=== PATIENT | female | born 1970 | race Caucasian/White ===

== ENCOUNTER 2018-11-26 12:29 | Emergency (ER) | payer OTHER ==
[~2018-11-26] VITALS: Ht 157.5 cm; Wt 63.3 kg
[2018-11-26 12:30] VITALS: BP 115/77
--- NOTE | 2018-11-26 12:59 | PHYS DOC ---
Past History Past Medical History: Hypothyroid Additional Past Surgical Histo: pelvic mesh Smoking: Non-smoker Alcohol Use: Heavy (3 beers 3-4 times a week) Drug Use: None Adult General Chief Complaint Chief Complaint: OTHER COMPLAINTS HPI HPI Patient is a 48-year-old female presents with left arm paresthesia. This started several hours ago. It is circumferential from the mid upper arm distally. Feels like it is tingling. No trauma. No increased use. Patient is right-hand dominant. No weakness. 2 days ago patient had an episode where she was seen bright lights in front of her eyes this lasted for about 2 hours during which she could not remember people's names. This resolved entirely. During this time she also had similar tingling sensation in her left arm. She also had this transiently yesterday as well. She noted a bruise after rubbing her arm, in her ring finger. She denies any headache. Denies any previous history of similar. Denies any recent changes in medicines. Denies any nausea or vomiting. Denies any chest pain.[] Review of Systems Review of Systems Constitutional: Denies fever or chills [] Eyes: Denies change in visual acuity, redness, or eye pain [] HENT: Denies nasal congestion or sore throat [] Respiratory: Denies cough or shortness of breath [] Cardiovascular: No chest pain or palpitations[] GI: Denies abdominal pain, nausea, vomiting, bloody stools or diarrhea [] : Denies dysuria or hematuria [] Musculoskeletal: Denies back pain or joint pain [] Integument: Denies rash or skin lesions [] Neurologic: Denies headache, focal weakness, see history of present illness[] Endocrine: Denies polyuria or polydipsia [] All other systems were reviewed and found to be within normal limits, except as documented in this note. Allergies Allergies Allergies Coded Allergies Type Severity Reaction Last Updated Verified No Known Drug Allergies 11/26/18 No Physical Exam Physical Exam Constitutional: Well developed, well nourished, no acute distress, non-toxic appearance. [] HENT: Normocephalic, atraumatic, bilateral external ears normal, oropharynx moist, no oral exudates, nose normal. [] Eyes: PERRLA, EOMI, conjunctiva normal, no discharge. [] Neck: Normal range of motion, no tenderness, supple, no stridor. No bruit. [] Cardiovascular:Heart rate regular rhythm, no murmur [] Lungs & Thorax: Bilateral breath sounds clear to auscultation [] Abdomen: Bowel sounds normal, soft, no tenderness, no masses, no pulsatile masses. [] Skin: Warm, dry, no erythema, no rash. [] Back: No tenderness, no CVA tenderness. [] Extremities: No tenderness, no cyanosis, no clubbing, ROM intact, no edema. Strength is 5 out of 5. [] Neurologic: Alert and oriented X 3, normal motor function, normal sensory function, no focal deficits noted. NIH stroke scale of 0, normal rapid repetitive and alternating movements bilaterally upper extremities. No sensory changes to our objective testing bilateral upper extremities. [] Psychologic: Affect normal, judgement normal, mood normal. [] EKG EKG EKG shows a sinus rhythm at 68 bpm, normal axis, normal QTC, no ST elevation. No previous available for comparison. Interpreted by me at 1305.[] Radiology/Procedures Radiology/Procedures PROCEDURE: PORTABLE CHEST 1V PA chest radiograph 11/26/2018 CLINICAL HISTORY: Left-sided numbness. A PA digital radiograph of the chest was obtained. No previous studies are available for comparison. The cardiac and mediastinal silhouettes are within normal limits in size and configuration. No acute pulmonary infiltrate is seen. No pleural effusion or pneumothorax is noted. Minimal S-shaped curvature of the thoracolumbar spine is seen. IMPRESSION: No acute abnormality is seen. PROCEDURE: CT HEAD WO CONTRAST CT scan of the head without contrast 11/26/2018 Clinical History: Left arm paresthesias. Memory changes. Technique: Unenhanced, contiguous, 5 mm axial sections were obtained through the head. One or more of the following individualized dose reduction techniques were utilized for this study: 1. Automated exposure control. 2. Adjustment of the mA and/or kV according to patient size. 3. Use of iterative reconstruction technique. Findings: No previous studies are available for comparison. There is mild generalized parenchymal atrophy. No acute parenchymal abnormality is seen. No extra-axial fluid collection is noted. No skull fracture is seen. Mild to moderate mucosal thickening is seen involving the right maxillary sinus. Impression: No acute intracranial abnormality is seen. [] Course & Med Decision Making Course & Med Decision Making Pertinent Labs and Imaging studies reviewed. (See chart for details) ED course: Patient arrived, was placed in bed, and tolerated exam well. She was transported to and from [place] with any complications. After the return of the laboratory and imaging findings, these were discussed with the patient and her family who voiced understanding. All questions were answered. Patient was discharged in improved condition. Medical decision making: There is no evidence of an acute stroke syndrome. No evidence of a significant electrolyte abnormality. No evidence of a mass or bleed. Will have patient start aspirin therapy as a preventative measure given that these paresthesias. Discussed with patient need for possible MRI versus imaging of the cervical spine given this paresthesias of her left upper extremity. No MRI is available at [facility], and do not believe that it is necessary is any emergent procedure given that the symptoms have been present for the past several days.[] Dragon Disclaimer Dragon Disclaimer This electronic medical record was generated, in whole or in part, using a voice recognition dictation system. Departure Departure: Impression: Primary Impression: Paresthesia of left upper extremity Disposition: 01 HOME, SELF-CARE Condition: IMPROVED Referrals: YAMEL MCDOWELL DO (PCP) Follow-up in 2 days Patient Instructions: Paresthesia Additional Instructions: Follow-up with your regular doctor in 2 days. Return to the ER if worsening numbness, weakness, visual changes, or any other concerns. Scripts Aspirin (ASPIRIN) 81 Mg Tab.chew 81 MG PO DAILY for paresthesia, #30 TAB Prov: SHERI JESSICA DO 11/26/18 SHERI JESSICA DO November 26, 2018 12:59
--- NOTE | 2018-11-26 13:03 | EKG ---
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
[2018-11-26 13:31] LABS: BASO # 0.1 x10^3/uL (0.0-0.2); BASO % 1 % (0-3); EOS # 0.1 x10^3/uL (0.0-0.7); EOS % 1 % (0-3); HEMATOCRIT 37.5 % (36.0-47.0); HEMOGLOBIN 12.2 g/dL (12.0-15.5); LYMPH # 1.2 x10^3/uL (1.0-4.8); LYMPH % 24 % (24-48); MEAN CORPUSCULAR HEMOGLOBIN 27 pg (25-35); MEAN CORPUSCULAR HGB CONC 33 g/dL (31-37); MEAN CORPUSCULAR VOLUME 84 fL (79-100); MONO # 0.5 x10^3/uL (0.0-1.1); MONO % 10 % (0-9); NEUT # 3.1 x10^3uL (1.8-7.7); NEUT % 64 % (31-73); PLATELET COUNT 296 x10^3/uL (140-400); RED BLOOD COUNT 4.47 x10^6/uL (3.50-5.40); WHITE BLOOD COUNT 4.9 x10^3/uL (4.0-11.0)
[2018-11-26 13:41] LABS: AMPHETAMINE/METHAMPHETAMINE NEG (NEG); BARBITURATES NEG (NEG); BENZODIAZEPINES NEG (NEG); CANNABINOIDS NEG (NEG); COCAINE NEG (NEG); METHADONE NEG (NEG); OPIATES NEG (NEG); PHENCYCLIDINE NEG (NEG)
[2018-11-26 13:42] LABS: U PREG PATIENT NEGATIVE (NEG)
[2018-11-26 13:43] LABS: BILIRUBIN,URINE NEG (NEG); CLARITY,URINE CLEAR; COLOR,URINE STRAW; GLUCOSE,URINE NEG (NEG)
[2018-11-26 13:44] LABS: NITRITE,URINE NEG (NEG); UROBILINOGEN,URINE 0.2 mg/dL (0.2 mg/dL)
[2018-11-26 13:45] LABS: ALBUMIN 3.8 g/dL (3.4-5.0); ALBUMIN/GLOBULIN RATIO 1.1 (1.0-1.7); CALCIUM 9.4 mg/dL (8.5-10.1); CREATININE 0.7 mg/dL (0.6-1.0); GFR 88.6; MAGNESIUM 2.2 mg/dL (1.8-2.4); POTASSIUM 4.1 mmol/L (3.5-5.1); TOTAL BILIRUBIN 0.4 mg/dL (0.2-1.0); TOTAL PROTEIN 7.4 g/dL (6.4-8.2)
--- NOTE | 2018-11-26 13:49 | RAD ---
PA chest radiograph 11/26/2018 CLINICAL HISTORY: Left-sided numbness. A PA digital radiograph of the chest was obtained. No previous studies are available for comparison. The cardiac and mediastinal silhouettes are within normal limits in size and configuration. No acute pulmonary infiltrate is seen. No pleural effusion or pneumothorax is noted. Minimal S-shaped curvature of the thoracolumbar spine is seen. IMPRESSION: No acute abnormality is seen. Electronically signed by: Kwabena Ardon MD (11/26/2018 1:46 PM) [facility]
[2018-11-26 13:51] LABS: BACTERIA,URINE 0 /HPF (0-FEW); RBC,URINE RARE /HPF (0-2); SQUAMOUS EPITHELIAL CELL,UR OCC /LPF; WBC,URINE RARE /HPF (0-4)
--- NOTE | 2018-11-26 14:03 | RAD ---
CT scan of the head without contrast 11/26/2018 Clinical History: Left arm paresthesias. Memory changes. Technique: Unenhanced, contiguous, 5 mm axial sections were obtained through the head. One or more of the following individualized dose reduction techniques were utilized for this study: 1. Automated exposure control. 2. Adjustment of the mA and/or kV according to patient size. 3. Use of iterative reconstruction technique. Findings: No previous studies are available for comparison. There is mild generalized parenchymal atrophy. No acute parenchymal abnormality is seen. No extra-axial fluid collection is noted. No skull fracture is seen. Mild to moderate mucosal thickening is seen involving the right maxillary sinus. Impression: No acute intracranial abnormality is seen. Electronically signed by: Kwabena Ardon MD (11/26/2018 2:00 PM) [facility]
[2018-11-26] MEDS ORDERED: ASPI-630 PO (14:29)
== END 2018-11-26 14:30 | disposition home or self-care (01) ==
LOC: ER 12:29
DX: R20.2 Paresthesia of skin (principal); E03.9 Hypothyroidism, unspecified; F10.20 Alcohol dependence, uncomplicated; Y90.0 Blood alcohol level of less than 20 mg/100 ml
CPT/HCPCS: 36415; 70450; 71045; 80053; 80307; 81001; 81025; 83735; 84484; 85025; 85610; 93005; 99285-25

== ENCOUNTER 2019-02-17 17:29 | Inpatient (IN) | payer OTHER ==
[~2019-02-17] VITALS: Ht 157.5 cm; Wt 63.1 kg
[~2019-02-17 17:29] MED LIST: ASPI-630 PO
--- NOTE | 2019-02-17 17:51 | EKG ---
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
--- NOTE | 2019-02-17 17:53 | ED.ADGEN ---
Past History Past Medical History: Hypothyroid, TIA Past Surgical History: Other Additional Past Surgical Histo: pelvic mesh Smoking: Non-smoker Alcohol Use: Heavy Drug Use: None Adult General Chief Complaint Chief Complaint ".. I started having symptoms .. like I had on November 25.. they thought maybe I had a mini stroke... I started seeing stars... in both eyes... , I am back to normal now... I have not been taking my ASA daily the past couple weeks.. Last time I also had some confusion.. like I could not remember my nephews name... but they did a follow up MRI and everything was fine..."..." My thryroid meds was 10 x too much last time... and they thought that was the cause...".. " I do get migraine too..." HPI HPI Patient is a 48 year old female dependent who presents with above hx and complaints seen stars in both eyes. Onset occurred approximately an hour ago. Symptoms have resolved by the time of arrival to the emergency department. No history of trauma. No specific ill contacts. 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 Pt. last TIA or CVA likes symptoms were felt do over dosage of thyroid medications. Reportedly MRI at that time was negative. Patient reportedly to be on aspirin daily but has not taken it for the last 2 weeks. She does have neuro history of occasional migraines. Pt. had migraine symptoms 2 days ago and again today. Patient normally follows at [place] for care. Review of Systems Review of Systems Constitutional: Denies fever or chills [] Eyes: Denies change in visual acuity, redness, or eye pain []complains of seeing stars in both eyes - colors HENT: Denies nasal congestion or sore throat [] Respiratory: Denies cough or shortness of breath [] Cardiovascular: No additional information not addressed in HPI [] GI: Denies abdominal pain, nausea, vomiting, bloody stools or diarrhea [] : Denies dysuria or hematuria [] Musculoskeletal: Denies back pain or joint pain [] Integument: Denies rash or skin lesions [] Neurologic: Denies headache, focal weakness or sensory changes [] Endocrine: Denies polyuria or polydipsia [] All other systems were reviewed and found to be within normal limits, except as documented in this note. Family History Family History Noncontributory Current Medications Current Medications Current Medications Medications (Trade) Dose Ordered Sig/Bernardo Start Time Stop Time Status Last Admin Dose Admin Aspirin (Children'S Aspirin) 324 mg 1X ONCE 02/17/19 18:00 02/17/19 18:01 DC 02/17/19 18:11 324 MG Multivitamins/ Minerals 10 ml/ Folic Acid 1 mg/ Thiamine HCl 100 mg/Lactated Ringer's 1,011.2 ml @ 1,011.2 mls/hr 1X ONCE 02/17/19 18:00 02/17/19 18:59 DC 02/17/19 18:11 1,011.2 MLS/HR Allergies Allergies Allergies Coded Allergies Type Severity Reaction Last Updated Verified No Known Drug Allergies 11/26/18 No Physical Exam Physical Exam Constitutional: Well developed, well nourished, in acute emotional distress, non-toxic appearance. [] HENT: Normocephalic, atraumatic, bilateral external ears normal, oropharynx moist, no oral exudates, nose normal. [] Eyes: PERRLA, EOMI, conjunctiva normal, no discharge. [] Myopia Neck: Normal range of motion, no tenderness, supple, no stridor. [] Cardiovascular:Heart rate regular rhythm, no murmur [] Lungs & Thorax: Bilateral breath sounds equal at apex auscultation [] Abdomen: Bowel sounds normal, soft, no tenderness, no masses, no pulsatile masses. [] Skin: Warm, dry, no erythema, no rash. [] Back: No tenderness, no CVA tenderness. [] Extremities: No tenderness, no cyanosis, no clubbing, ROM intact, no edema. [] Neurologic: Alert and oriented X 3, normal motor function, normal sensory function, no focal deficits noted. []DTRs +2 patella and brachial. No drift. Teasel Gig Operator equal. Baseline NIHSS =0. at bedside states she appears to be normal mental status to him. Psychologic: Affect anxious, judgement normal, mood normal. [] Current Patient Data Vital Signs Vital Signs Date Time Temp Pulse Resp B/P (MAP) Pulse Ox O2 Delivery O2 Flow Rate FiO2 02/17/19 17:36 98.2 78 16 100 Room Air Lab Results Laboratory Tests Test 02/17/19 17:41 02/17/19 18:09 White Blood Count 5.4 x10^3/uL (4.0-11.0) Red Blood Count 4.28 x10^6/uL (3.50-5.40) Hemoglobin 11.7 g/dL (12.0-15.5) L Hematocrit 36.6 % (36.0-47.0) Mean Corpuscular Volume 86 fL (79-100) Mean Corpuscular Hemoglobin 28 pg (25-35) Mean Corpuscular Hemoglobin Concent 32 g/dL (31-37) Red Cell Distribution Width 15.1 % (11.5-14.5) H Platelet Count 281 x10^3/uL (140-400) Neutrophils (%) (Auto) 60 % (31-73) Lymphocytes (%) (Auto) 27 % (24-48) Monocytes (%) (Auto) 9 % (0-9) Eosinophils (%) (Auto) 3 % (0-3) Basophils (%) (Auto) 1 % (0-3) Neutrophils # (Auto) 3.2 x10^3uL (1.8-7.7) Lymphocytes # (Auto) 1.5 x10^3/uL (1.0-4.8) Monocytes # (Auto) 0.5 x10^3/uL (0.0-1.1) Eosinophils # (Auto) 0.2 x10^3/uL (0.0-0.7) Basophils # (Auto) 0.1 x10^3/uL (0.0-0.2) Erythrocyte Sedimentation Rate 10 (0-25) Prothrombin Time 9.9 SEC (9.4-11.4) Prothrombin Time INR 1.0 (0.9-1.1) PTT 26 SEC (23-33) Sodium Level 138 mmol/L (136-145) Potassium Level 3.3 mmol/L (3.5-5.1) L Chloride Level 102 mmol/L (98-107) Carbon Dioxide Level 22 mmol/L (21-32) Anion Gap 14 (6-14) Blood Urea Nitrogen 16 mg/dL (7-20) Creatinine 0.9 mg/dL (0.6-1.0) Estimated GFR (Cockcroft-Gault) 66.3 Glucose Level 110 mg/dL (70-99) H Calcium Level 8.9 mg/dL (8.5-10.1) Magnesium Level 2.0 mg/dL (1.8-2.4) Creatine Kinase 140 U/L (26-192) Troponin I Quantitative < 0.017 ng/mL (0-0.055) OH-Cuz-B-Type Natriuretic Peptide 130 pg/mL (0-124) H Ethyl Alcohol Level < 10 mg/dL (0-10) Urine Collection Type Unknown Urine Color Straw Urine Clarity Clear Urine pH 5.5 Urine Specific [place] <=1.005 Urine Protein Neg (NEG-TRACE) Urine Glucose (UA) Neg mg/dL (NEG) Urine Ketones (Stick) Neg mg/dL (NEG) Urine Blood Neg (NEG) Urine Nitrite Neg (NEG) Urine Bilirubin Neg (NEG) Urine Urobilinogen Dipstick 0.2 mg/dL (0.2 mg/dL) Urine Leukocyte Esterase Neg (NEG) Urine RBC 0 /HPF (0-2) Urine WBC 0 /HPF (0-4) Urine Squamous Epithelial Cells Occ /LPF Urine Bacteria 0 /HPF (0-FEW) Urine Opiates Screen Neg (NEG) Urine Methadone Screen Neg (NEG) Urine Barbiturates Neg (NEG) Urine Phencyclidine Screen Neg (NEG) Urine Amphetamine/Methamphetamine Neg (NEG) Urine Benzodiazepines Screen Neg (NEG) Urine Cocaine Screen Neg (NEG) Urine Cannabinoids Screen Neg (NEG) Urine Ethyl Alcohol Neg (NEG) EKG EKG I interpretation of EKG shows a sinus rhythm at 69 bpm. No acute morphology[] Radiology/Procedures Radiology/[place] [address] IMAGING REPORT Signed PATIENT: TREVER MOHAN ACCOUNT: [id number] : 1970 LOCATION: [address] [place] [address] AGE: 48 SEX: F EXAM STATUS: ADM IN ORD. PHYSICIAN: JHONY ROTHMAN MD REASON: TIA symptoms PROCEDURE: DOPPLER CAROTID BILAT Exam: Ultrasound carotid duplex Indication: TIA symptoms Technique: Real-time grayscale and color Doppler images of the bilateral carotid arteries were obtained by the department pattern stamper. Spectral Doppler was used. Comparisons: None FINDINGS: Peak systolic velocity as follows: Right: Common carotid artery: 87 cm/s Internal carotid artery: 51 cm/s External carotid artery: 47 cm/s Left: Common carotid artery: 78 cm/s Internal carotid artery: 68 cm/s External carotid artery: 40 cm/s Anterior grade flow within the vertebral arteries are noted bilaterally. IMPRESSION: No significant stenosis within the cervical carotid vasculature Electronically signed by: Arron Miller MD (02/17/2019 7:55 PM) [facility] DICTATED AND SIGNED BY: ARRON MILLER MD DATE: 02/17/191954 CC: YAMEL MCDOWELL DO; JHONY ROTHMAN MD; JEROME HERNANDEZ MD ~ [address] [address] [place] [address] IMAGING REPORT Signed PATIENT: TREVER MOHAN ACCOUNT: [id number] : 1970 LOCATION: ER AGE: 48 SEX: F EXAM STATUS: REG ER ORD. PHYSICIAN: JHONY ROTHMAN MD REASON: TIA symptoms PROCEDURE: CHEST PA & LATERAL Exam: Chest 2 views INDICATION: TIA symptoms TECHNIQUE: Frontal and lateral views of the chest Comparisons: 11/26/2018 FINDINGS: The cardiomediastinal silhouette and pulmonary vessels are within normal limits. The lung and pleural spaces are clear. IMPRESSION: No acute cardiopulmonary process. Electronically signed by: Arron Miller MD (02/17/2019 6:01 PM) [facility] DICTATED AND SIGNED BY: ARRON MILLER MD DATE: 02/17/191800 Signed PATIENT: TREVER MOHAN ACCOUNT: [id number] : 1970 LOCATION: ER AGE: 48 SEX: F EXAM STATUS: REG ER ORD. PHYSICIAN: JHONY ROTHMAN MD REASON: TIA symptoms PROCEDURE: CHEST PA & LATERAL Exam: Chest 2 views INDICATION: TIA symptoms TECHNIQUE: Frontal and lateral views of the chest Comparisons: 11/26/2018 FINDINGS: The cardiomediastinal silhouette and pulmonary vessels are within normal limits. The lung and pleural spaces are clear. IMPRESSION: No acute cardiopulmonary process. Electronically signed by: Arron Miller MD (02/17/2019 6:01 PM) [facility] DICTATED AND SIGNED BY: ARRON MILLER MD DATE: 02/17/19 180 CC: YAMEL MCDOWELL DO; JHONY ROTHMAN MD ~ [][place] [address] IMAGING REPORT Signed PATIENT: TREVER MOHAN ACCOUNT: [id number] : 1970 LOCATION: ER AGE: 48 SEX: F EXAM STATUS: REG ER ORD. PHYSICIAN: JHONY ROTHMAN MD REASON: Stroke protocol- TIA 3 mo ago, repeat symptoms at 1700 today PROCEDURE: CT CODE STROKE HEAD WO Exam: CT head INDICATION: Stroke TECHNIQUE: Sequential axial images through the head were obtained without the administration of IV contrast. Comparisons: 11/26/2018 FINDINGS: No focal parenchymal lesion or hemorrhage is identified. There is no midline shift or sulcal effacement. No acute vascular territory infarction is identified. Hill-white distinction is preserved. The ventricular system is within normal limits without compression hydrocephalus. The basal cisterns are well maintained. The visualized portions of the paranasal sinuses and mastoid air cells are well-pneumatized. No acute fractures. IMPRESSION: No acute intracranial abnormality. Exposure: One or more of the following in the visualized dose reduction techniques were utilized for this examination: 1. Automated exposure control 2. Adjustment of the MA and/or KV according to patient size Use of iterative of reconstructive technique Electronically signed by: Arron Miller MD (02/17/2019 5:55 PM) [facility] DICTATED AND SIGNED BY: ARRON MILLER MD DATE: 02/17/19 9233 CC: YAMEL MCDOWELL DO; JHONY ROTHMAN MD ~ Course & Med Decision Making Course & Med Decision Making Pertinent Labs and Imaging studies reviewed. (See chart for details) Pt. admitted to Dr. Hernandez with a Neuro consult. [] Final Impression Final Impression 1. TIA "symptom bilateral - stars"- vs Migraine Variant 2. Myopia 3. Hypokalemia 3.3 4. Hx. Hypothyroid 5. Hx Migraines Dragon Disclaimer Dragon Disclaimer This electronic medical record was generated, in whole or in part, using a voice recognition dictation system. Discharge Summary Visit Information Final Diagnosis Problems Medical Problems: (1) TIA (transient ischemic attack) Status: Acute Brief Hospital Course Allergies Allergies Coded Allergies Type Severity Reaction Last Updated Verified No Known Drug Allergies 11/26/18 No Vital Signs Vital Signs Date Time Temp Pulse Resp B/P (MAP) Pulse Ox O2 Delivery O2 Flow Rate FiO2 02/17/19 17:36 98.2 78 16 100 Room Air Lab Results Laboratory Tests Test 02/17/19 17:41 02/17/19 18:09 White Blood Count 5.4 x10^3/uL (4.0-11.0) Red Blood Count 4.28 x10^6/uL (3.50-5.40) Hemoglobin 11.7 g/dL (12.0-15.5) Hematocrit 36.6 % (36.0-47.0) Mean Corpuscular Volume 86 fL (79-100) Mean Corpuscular Hemoglobin 28 pg (25-35) Mean Corpuscular Hemoglobin Concent 32 g/dL (31-37) Red Cell Distribution Width 15.1 % (11.5-14.5) Platelet Count 281 x10^3/uL (140-400) Neutrophils (%) (Auto) 60 % (31-73) Lymphocytes (%) (Auto) 27 % (24-48) Monocytes (%) (Auto) 9 % (0-9) Eosinophils (%) (Auto) 3 % (0-3) Basophils (%) (Auto) 1 % (0-3) Neutrophils # (Auto) 3.2 x10^3uL (1.8-7.7) Lymphocytes # (Auto) 1.5 x10^3/uL (1.0-4.8) Monocytes # (Auto) 0.5 x10^3/uL (0.0-1.1) Eosinophils # (Auto) 0.2 x10^3/uL (0.0-0.7) Basophils # (Auto) 0.1 x10^3/uL (0.0-0.2) Erythrocyte Sedimentation Rate 10 (0-25) Prothrombin Time 9.9 SEC (9.4-11.4) Prothromb Time International Ratio 1.0 (0.9-1.1) Activated Partial Thromboplast Time 26 SEC (23-33) Sodium Level 138 mmol/L (136-145) Potassium Level 3.3 mmol/L (3.5-5.1) Chloride Level 102 mmol/L (98-107) Carbon Dioxide Level 22 mmol/L (21-32) Anion Gap 14 (6-14) Blood Urea Nitrogen 16 mg/dL (7-20) Creatinine 0.9 mg/dL (0.6-1.0) Estimated GFR (Cockcroft-Gault) 66.3 Glucose Level 110 mg/dL (70-99) Calcium Level 8.9 mg/dL (8.5-10.1) Magnesium Level 2.0 mg/dL (1.8-2.4) Creatine Kinase 140 U/L (26-192) Troponin I Quantitative < 0.017 ng/mL (0-0.055) KO-Haf-W-Type Natriuretic Peptide 130 pg/mL (0-124) Ethyl Alcohol Level < 10 mg/dL (0-10) Urine Collection Type Unknown Urine Color Straw Urine Clarity Clear Urine pH 5.5 Urine Specific [place] <=1.005 Urine Protein Neg (NEG-TRACE) Urine Glucose (UA) Neg mg/dL (NEG) Urine Ketones (Stick) Neg mg/dL (NEG) Urine Blood Neg (NEG) Urine Nitrite Neg (NEG) Urine Bilirubin Neg (NEG) Urine Urobilinogen Dipstick 0.2 mg/dL (0.2 mg/dL) Urine Leukocyte Esterase Neg (NEG) Urine RBC 0 /HPF (0-2) Urine WBC 0 /HPF (0-4) Urine Squamous Epithelial Cells Occ /LPF Urine Bacteria 0 /HPF (0-FEW) Urine Opiates Screen Neg (NEG) Urine Methadone Screen Neg (NEG) Urine Barbiturates Neg (NEG) Urine Phencyclidine Screen Neg (NEG) Urine Amphetamine/Methamphetamine Neg (NEG) Urine Benzodiazepines Screen Neg (NEG) Urine Cocaine Screen Neg (NEG) Urine Cannabinoids Screen Neg (NEG) Urine Ethyl Alcohol Neg (NEG) Brief Hospital Course Ms. Mohan is a 48 old female dependent who presented with TIA vs CVA vs Migraine variant symptoms. Admitted to Dr. Hernandez with neuro consult. Discharge Information Condition at Discharge: Improved, Stable Dischare Medications Current Medications Multivitamins/ Minerals 10 ml/ Folic Acid 1 mg/ Thiamine HCl 100 mg/Lactated Ringer's 1,011.2 ml @ 1,011.2 mls/hr 1X ONCE IV Last administered on 02/17/19at 18:11; Admin Dose 1,011.2 MLS/HR; Start 02/17/19 at 18:00; Stop 02/17/19 at 18:59; Status DC Aspirin (Children'S Aspirin) 324 mg 1X ONCE PO Last administered on 02/17/19at 18:11; Admin Dose 324 MG; Start 02/17/19 at 18:00; Stop 02/17/19 at 18:01; Status DC Active Scripts Active Reported Synthroid (Levothyroxine Sodium) 137 Mcg Tablet 137 Mcg PO DAILY06 Dragon Disclaimer This chart was dictated in whole or in part using Voice Recognition software in a busy, high-work load, and often noisy Emergency Department environment. It may contain unintended and wholly unrecognized errors or omissions. JHONY ROTHMAN MD Feb 17, 2019 17:53
[2019-02-17 17:57] LABS: BASO # 0.1 x10^3/uL (0.0-0.2); BASO % 1 % (0-3); EOS # 0.2 x10^3/uL (0.0-0.7); EOS % 3 % (0-3); HEMATOCRIT 36.6 % (36.0-47.0); HEMOGLOBIN 11.7 g/dL (12.0-15.5); LYMPH # 1.5 x10^3/uL (1.0-4.8); LYMPH % 27 % (24-48); MEAN CORPUSCULAR HEMOGLOBIN 28 pg (25-35); MEAN CORPUSCULAR HGB CONC 32 g/dL (31-37); MEAN CORPUSCULAR VOLUME 86 fL (79-100); MONO # 0.5 x10^3/uL (0.0-1.1); MONO % 9 % (0-9); NEUT # 3.2 x10^3uL (1.8-7.7); NEUT % 60 % (31-73); PLATELET COUNT 281 x10^3/uL (140-400); RED BLOOD COUNT 4.28 x10^6/uL (3.50-5.40); RED CELL DISTRIBUTION WIDTH 15.1 % (11.5-14.5); WHITE BLOOD COUNT 5.4 x10^3/uL (4.0-11.0)
--- NOTE | 2019-02-17 17:59 | RAD ---
Exam: CT head INDICATION: Stroke TECHNIQUE: Sequential axial images through the head were obtained without the administration of IV contrast. Comparisons: 11/26/2018 FINDINGS: No focal parenchymal lesion or hemorrhage is identified. There is no midline shift or sulcal effacement. No acute vascular territory infarction is identified. Hill-white distinction is preserved. The ventricular system is within normal limits without compression hydrocephalus. The basal cisterns are well maintained. The visualized portions of the paranasal sinuses and mastoid air cells are well-pneumatized. No acute fractures. IMPRESSION: No acute intracranial abnormality. Exposure: One or more of the following in the visualized dose reduction techniques were utilized for this examination: 1. Automated exposure control 2. Adjustment of the MA and/or KV according to patient size Use of iterative of reconstructive technique Electronically signed by: Arron Olmstead MD (02/17/2019 5:55 PM) [facility]
[2019-02-17] MEDS ORDERED: ASPIRIN 81 MG TAB.CHEW PO ONE (18:00)
[2019-02-17] MEDS ORDERED: MVI, ADULT NO.4 WITH VIT K 10 ML, FOLIC ACID SYRINGE for ER 1 MG, THIAMINE INJ 100 MG i... IV ONE ×4 (18:00)
--- NOTE | 2019-02-17 18:04 | RAD ---
Exam: Chest 2 views INDICATION: TIA symptoms TECHNIQUE: Frontal and lateral views of the chest Comparisons: 11/26/2018 FINDINGS: The cardiomediastinal silhouette and pulmonary vessels are within normal limits. The lung and pleural spaces are clear. IMPRESSION: No acute cardiopulmonary process. Electronically signed by: Arron Olmstead MD (02/17/2019 6:01 PM) [facility]
[2019-02-17 18:16] LABS: CALCIUM 8.9 mg/dL (8.5-10.1); CREATININE 0.9 mg/dL (0.6-1.0); GFR 66.3; POTASSIUM 3.3 mmol/L (3.5-5.1)
[2019-02-17] MEDS ORDERED: ONDANSETRON PF 4 MG/2 ML VIAL. IV PRN (18:30)
[2019-02-17 18:33] LABS: BACTERIA,URINE 0 /HPF (0-FEW); BILIRUBIN,URINE NEG (NEG); CLARITY,URINE CLEAR; COLOR,URINE STRAW; GLUCOSE,URINE NEG (NEG); NITRITE,URINE NEG (NEG); RBC,URINE 0 /HPF (0-2); SQUAMOUS EPITHELIAL CELL,UR OCC /LPF; UROBILINOGEN,URINE 0.2 mg/dL (0.2 mg/dL); WBC,URINE 0 /HPF (0-4)
[2019-02-17 18:34] LABS: BARBITURATES NEG (NEG); BENZODIAZEPINES NEG (NEG); CANNABINOIDS NEG (NEG); COCAINE NEG (NEG); METHADONE NEG (NEG); OPIATES NEG (NEG); PHENCYCLIDINE NEG (NEG)
[2019-02-17 18:35] LABS: AMPHETAMINE/METHAMPHETAMINE NEG (NEG)
[2019-02-17] MEDS ORDERED: POTASSIUM CHLORIDE 20 MEQ TABLET.ER. PO ONE (18:50)
[2019-02-17 19:10] LABS: SEDIMENTATION RATE 10 (0-25)
--- NOTE | 2019-02-17 19:58 | RAD ---
Exam: Ultrasound carotid duplex Indication: TIA symptoms Technique: Real-time grayscale and color Doppler images of the bilateral carotid arteries were obtained by the department people greeter. Spectral Doppler was used. Comparisons: None FINDINGS: Peak systolic velocity as follows: Right: Common carotid artery: 87 cm/s Internal carotid artery: 51 cm/s External carotid artery: 47 cm/s Left: Common carotid artery: 78 cm/s Internal carotid artery: 68 cm/s External carotid artery: 40 cm/s Anterior grade flow within the vertebral arteries are noted bilaterally. IMPRESSION: No significant stenosis within the cervical carotid vasculature Electronically signed by: Arron Olmstead MD (02/17/2019 7:55 PM) [facility]
[2019-02-17 20:53] VITALS: BP 114/70
[2019-02-17] MEDS: IV RINGERS SOLUTION,LACTATED 1,000 ML IV SCH (21:49)
[2019-02-17] MEDS ORDERED: LEVO137T2 PO (22:17)
--- NOTE | 2019-02-17 22:29 | NUR ---
PT presented to ER after experiencing inability to recognize associates, trouble word finding and exhaustion. PT with similar symptoms in November 2018. PT admitted. PT scored 0 both in ER and on floor for stroke via NIHSS. PT's vital signs are WNL. PTs potassium slightly low, given oral replacement. PT assessed. Medications, PMH, PSH, SH, FH reviewed and noted. Per PT, she was back to baseline before coming to ER.
[2019-02-18] MEDS: IV RINGERS SOLUTION,LACTATED 1,000 ML IV SCH ×3 (04:12→12:14)
[2019-02-18 06:39] VITALS: BP 111/69
[2019-02-18 06:59] LABS: BASO # 0.1 x10^3/uL (0.0-0.2); BASO % 1 % (0-3); EOS # 0.2 x10^3/uL (0.0-0.7); EOS % 5 % (0-3); HEMATOCRIT 30.3 % (36.0-47.0); HEMOGLOBIN 9.8 g/dL (12.0-15.5); LYMPH # 1.4 x10^3/uL (1.0-4.8); LYMPH % 35 % (24-48); MEAN CORPUSCULAR HEMOGLOBIN 28 pg (25-35); MEAN CORPUSCULAR HGB CONC 33 g/dL (31-37); MEAN CORPUSCULAR VOLUME 85 fL (79-100); MONO # 0.4 x10^3/uL (0.0-1.1); MONO % 10 % (0-9); NEUT # 1.9 x10^3uL (1.8-7.7); NEUT % 50 % (31-73); PLATELET COUNT 223 x10^3/uL (140-400); RED BLOOD COUNT 3.55 x10^6/uL (3.50-5.40); RED CELL DISTRIBUTION WIDTH 15.3 % (11.5-14.5); WHITE BLOOD COUNT 3.9 x10^3/uL (4.0-11.0)
[2019-02-18 07:21] LABS: CALCIUM 8.2 mg/dL (8.5-10.1); CREATININE 0.8 mg/dL (0.6-1.0); GFR 75.9
[2019-02-18] MEDS ORDERED: ASPIRIN 81 MG TAB.CHEW PO SCH (09:00)
[2019-02-18] MEDS ORDERED: MVI, ADULT NO.4 WITH VIT K 10 ML, FOLIC ACID SYRINGE for ER 1 MG, THIAMINE INJ 100 MG i... IV SCH ×4 (09:00)
[2019-02-18 10:50] VITALS: BP 117/76
--- NOTE | 2019-02-18 13:57 | HP ---
ADMIT DATE: 02/17/2019 HISTORY OF PRESENT ILLNESS: The patient is a 48-year-old female patient, ventilator dependent, who presents with complaint of having symptoms like she had on 11/25/2018. At that time, she was seeing stars in both eyes. At that time, she also had some upper extremity numbness and tingling and she was evaluated in our Emergency Room and had an MRI done. After that she was found to be mildly thyrotoxic as her thyroid medication was about 10 times so much last time and her doctor has been cutting down her thyroid medication, and this time, she again came with blurring vision that started about an hour prior to arrival. By the time she arrived to the emergency, her symptoms had resolved. She has no history of trauma, no specific ill contact. No recent travel. 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 She was basically investigated in the Emergency Room, has had CT scan of the head, which was basically unremarkable although showed no acute intracranial abnormalities. She has had carotid Doppler ultrasound, which showed no significant stenosis within the cervical carotid vasculature. She was admitted for further evaluation and to consult the Cardiology as well as the neurologist. 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 Last time she checked her thyroid function was about 2 weeks ago, although she cannot remember the numbers. PAST SURGICAL HISTORY: Significant for tonsillectomy and bladder sling. ALLERGIES: She has no known drug allergies. MEDICATIONS: She is on Synthroid 136 mcg once a day. She was on aspirin that she stopped about a month ago. FAMILY HISTORY: She has 3 sisters, all younger and healthy. Her father is alive at age 74 and has hypertension. Mother is alive at age of 69 and apparently healthy. SOCIAL HISTORY: She is . She has 3 sons of her own and 1 daughter and she adopted her nephew. She has never smoked, never used marijuana and drinks alcohol daily. 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 REVIEW OF SYSTEMS: Obviously has these episodes of what sound to be loss of vision twice where she sees flashes of light and cannot see anything according to her. She has one episode of what seemed to be global amnesia, but denied any glaucoma or macular degeneration. Denied any earache, tinnitus or sensorineural deafness. Denied any nosebleeds, stuffy nose or postnasal drip. Denied any sore throat, sore tongue, toothache, hoarseness of voice or difficulty swallowing. Denied any nausea, vomiting, diarrhea or constipation. Denied any hematemesis, melena, hematochezia. Denied any dysuria, frequency or hematuria. Denied any chest pain, shortness of breath, orthopnea, paroxysmal nocturnal dyspnea. Did complain of palpitation and episode of dizziness. PHYSICAL EXAMINATION: GENERAL: On arrival to the Emergency Room, she looked well and was clearly in no apparent respiratory distress. She was pale. No jaundice, cyanosis or thyromegaly. No jugular venous distention. No limb edema. VITAL SIGNS: Her heart rate was 78, blood pressure was 117/74, temperature was 98.2, respiratory rate was 16, and oxygen saturation 100% on room air. HEENT: Normocephalic, atraumatic. NECK: Supple. HEART: Showed normal first and second heart sounds with no gallop, rub or murmur. CHEST: Clear to auscultation. No crepitation or rhonchi. ABDOMEN: Scaphoid, soft, nontender. NEUROLOGIC: She was alert, oriented x 3. She apparently has normal motor and sensory function. No focal deficits. No drift and her baseline National Institutes of Health stroke score was only 0. LABORATORY DATA: While in the Emergency Room, she has had a white cell count of 5400, hemoglobin 11.7, hematocrit 36.6, MCV 86 and platelet count 281,000. Her chemistry showed a serum sodium 138, potassium 3.3, chloride 102, bicarbonate 22, anion gap of 14, BUN 16, creatinine 0.9, estimated GFR was 66 mL per minute. Her glucose was 110, calcium was 8.9, magnesium 2. CK was 140. Beta-natriuretic peptide was 130. Her prothrombin time was 9.9, INR of 1, aPTT was 26. Urinalysis showed the urine was straw colored, clear with a pH of 5.5, specific gravity 1.005. The urine was negative for protein, glucose, ketones, blood, nitrite and leukocyte esterase, 0 wbc's, 0 rbc's, and no bacteria. Her toxic screen was essentially negative. Her blood alcohol level was less than 10. Her CT scan of the head showed that there is no focal parenchymal lesion or hemorrhage is identified. There is no midline shift. There is sulcal effacement, no acute vascular territory infarction identified. Dumont white distinction is preserved. The ventricular system is within normal limits without compression hydrocephalus. Basal cisterns are well maintained. The visualized portion of the paranasal sinuses and mastoid air cells are well pneumatized. No acute fracture. Her chest x-ray showed the cardiomediastinal silhouette and pulmonary vessels are within normal limits. The lungs and pleural spaces are clear. Her carotid Doppler ultrasound showed that there is no significant stenosis within the cervical carotid vasculature. ASSESSMENT AND PLAN: In summary, this is a 48-year-old female patient who has at least 2 episodes of what she describes as loss of vision during which she describes seeing stars in both eyes. She has one episode of what seems to be global amnesia and marked confusion during which she was unable to remember her nephew or her coworkers and her nephew has commented that she might have had dementia. She has also episodes of palpitation and feels dizzy. From their description, she seemed to be thyrotoxic and her Synthroid has been cut down from 175 to 136. I would consult . ____ as well as the administrative job titles and I will arrange for her to check her TSH and perhaps ____ free T4 and decide the further management accordingly. JEROME VILLELA MD DR: JENNA/christiano JOB#: [id number] / [id number]
--- NOTE | 2019-02-18 13:58 | PDOC2 ---
CONSULT Date of Admission DATE: 02/18/19 TIME: 13:58 Reason for Consult: TIA Referring Physician: Dr. Hernandez Chief Complaint Visual problems Source: Chart review, Patient Problem List Problems Medical Problems: (1) TIA (transient ischemic attack) Status: Acute History of Present Illness 48 y/o female without any previous cardiac history presented stating that she had visual disturbances that she described as 'kaleidoscope' without any slurred speech or sensory/motor loss. She had another similar episode 3 months ago associated with global amnesia at that time. She also complained of intermittent palpitations but denied any orthopnea/PND, chest pain or syncope. Symptoms currently resolved. Past Medical History Hypothyroidism Past Surgical History Pelvic mesh procedure Family History negative for premature CAD Social History Patient admitted to alcohol use but denied any smoking or drug use Current Medications Current Medications Multivitamins/ Minerals 10 ml/ Folic Acid 1 mg/ Thiamine HCl 100 mg/Lactated Ringer's 1,011.2 ml @ 1,011.2 mls/hr 1X ONCE IV Last administered on 02/17/19 18:11; Start 02/17/19 at 18:00; Stop 02/17/19 at 18:59; Status DC Aspirin (Children'S Aspirin) 324 mg 1X ONCE PO Last administered on 02/17/19 18:11; Start 02/17/19 at 18:00; Stop 02/17/19 at 18:01; Status DC Ondansetron HCl (Zofran) 4 mg PRN Q4HRS PRN IV NAUSEA/VOMITING; Start 02/17/19 at 18:30; Stop 02/18/19 at 18:29 Aspirin (Children'S Aspirin) 81 mg DAILY PO Last administered on 02/18/19at 08:25; Start 02/18/19 at 09:00 Multivitamins/ Minerals 10 ml/ Folic Acid 1 mg/ Thiamine HCl 100 mg/Lactated Ringer's 1,011.2 ml @ 160 mls/ hr DAILY IV Last administered on 02/18/19at 10:21; Start 02/18/19 at 09:00 Lactated Ringer's 1,000 ml @ 160 mls/hr Q6H15M IV Last administered on 02/18/19at 04:12; Start 02/17/19 at 18:30 Potassium Chloride (Klor-Con) 40 meq 1X ONCE PO Last administered on 02/17/19at 21:48; Start 02/17/19 at 18:50; Stop 02/17/19 at 18:51; Status DC Active Scripts Active Reported Synthroid (Levothyroxine Sodium) 137 Mcg Tablet 137 Mcg PO DAILY06 Allergies: Coded Allergies: No Known Drug Allergies (Unverified , 11/26/18) PSYCHOLOGICAL ROS: No: Hallucinations Eyes: Yes: Double vision HEENT: No: Epistaxis ENDOCRINE: YES: Palpitations Respiratory: No: Hemoptysis Cardiovascular: yes: Palpitations; No: Chest Pain Gastrointestinal: No: Vomiting Neurological: No: Seizures Skin: No: Rash General: Alert, No acute distress HEENT: Atraumatic Lungs: Clear to auscultation Heart: Regular rate Abdomen: Soft, No tenderness Extremities: No edema Neuro: Normal speech Psych/Mental Status: Mood NL VITALS Vital Signs Date Time Temp Pulse Resp B/P (MAP) Pulse Ox O2 Delivery O2 Flow Rate FiO2 02/18/19 10:50 98.1 61 117/76 (90) 100 Room Air 02/18/19 06:39 20 Labs Laboratory Tests Test 02/17/19 17:41 02/17/19 17:43 02/17/19 18:09 02/18/19 06:37 White Blood Count 5.4 x10^3/uL (4.0-11.0) 3.9 x10^3/uL (4.0-11.0) Red Blood Count 4.28 x10^6/uL (3.50-5.40) 3.55 x10^6/uL (3.50-5.40) Hemoglobin 11.7 g/dL (12.0-15.5) 9.8 g/dL (12.0-15.5) Hematocrit 36.6 % (36.0-47.0) 30.3 % (36.0-47.0) Mean Corpuscular Volume 86 fL (79-100) 85 fL (79-100) Mean Corpuscular Hemoglobin 28 pg (25-35) 28 pg (25-35) Mean Corpuscular Hemoglobin Concent 32 g/dL (31-37) 33 g/dL (31-37) Red Cell Distribution Width 15.1 % (11.5-14.5) 15.3 % (11.5-14.5) Platelet Count 281 x10^3/uL (140-400) 223 x10^3/uL (140-400) Neutrophils (%) (Auto) 60 % (31-73) 50 % (31-73) Lymphocytes (%) (Auto) 27 % (24-48) 35 % (24-48) Monocytes (%) (Auto) 9 % (0-9) 10 % (0-9) Eosinophils (%) (Auto) 3 % (0-3) 5 % (0-3) Basophils (%) (Auto) 1 % (0-3) 1 % (0-3) Neutrophils # (Auto) 3.2 x10^3uL (1.8-7.7) 1.9 x10^3uL (1.8-7.7) Lymphocytes # (Auto) 1.5 x10^3/uL (1.0-4.8) 1.4 x10^3/uL (1.0-4.8) Monocytes # (Auto) 0.5 x10^3/uL (0.0-1.1) 0.4 x10^3/uL (0.0-1.1) Eosinophils # (Auto) 0.2 x10^3/uL (0.0-0.7) 0.2 x10^3/uL (0.0-0.7) Basophils # (Auto) 0.1 x10^3/uL (0.0-0.2) 0.1 x10^3/uL (0.0-0.2) Erythrocyte Sedimentation Rate 10 (0-25) Prothrombin Time 9.9 SEC (9.4-11.4) Prothromb Time International Ratio 1.0 (0.9-1.1) Activated Partial Thromboplast Time 26 SEC (23-33) Sodium Level 138 mmol/L (136-145) 142 mmol/L (136-145) Potassium Level 3.3 mmol/L (3.5-5.1) 4.0 mmol/L (3.5-5.1) Chloride Level 102 mmol/L (98-107) 110 mmol/L (98-107) Carbon Dioxide Level 22 mmol/L (21-32) 27 mmol/L (21-32) Anion Gap 14 (6-14) 5 (6-14) Blood Urea Nitrogen 16 mg/dL (7-20) 11 mg/dL (7-20) Creatinine 0.9 mg/dL (0.6-1.0) 0.8 mg/dL (0.6-1.0) Estimated GFR (Cockcroft-Gault) 66.3 75.9 Glucose Level 110 mg/dL (70-99) 91 mg/dL (70-99) Calcium Level 8.9 mg/dL (8.5-10.1) 8.2 mg/dL (8.5-10.1) Magnesium Level 2.0 mg/dL (1.8-2.4) Creatine Kinase 140 U/L (26-192) Troponin I Quantitative < 0.017 ng/mL (0-0.055) KB-Jyn-K-Type Natriuretic Peptide 130 pg/mL (0-124) Ethyl Alcohol Level < 10 mg/dL (0-10) Triglycerides Level 89 mg/dL (0-150) Cholesterol Level 191 mg/dL (0-200) LDL Cholesterol, Calculated 100 mg/dL (0-100) VLDL Cholesterol, Calculated 17 mg/dL (0-40) Non-HDL Cholesterol Calculated 117 mg/dL (0-129) HDL Cholesterol 74 mg/dL (40-60) Cholesterol/HDL Ratio 2.0 Thyroid Stimulating Hormone (TSH) 0.786 uIU/mL (0.358-3.740) Urine Collection Type Unknown Urine Color Straw Urine Clarity Clear Urine pH 5.5 Urine Specific Thorpe <=1.005 Urine Protein Neg (NEG-TRACE) Urine Glucose (UA) Neg mg/dL (NEG) Urine Ketones (Stick) Neg mg/dL (NEG) Urine Blood Neg (NEG) Urine Nitrite Neg (NEG) Urine Bilirubin Neg (NEG) Urine Urobilinogen Dipstick 0.2 mg/dL (0.2 mg/dL) Urine Leukocyte Esterase Neg (NEG) Urine RBC 0 /HPF (0-2) Urine WBC 0 /HPF (0-4) Urine Squamous Epithelial Cells Occ /LPF Urine Bacteria 0 /HPF (0-FEW) Urine Opiates Screen Neg (NEG) Urine Methadone Screen Neg (NEG) Urine Barbiturates Neg (NEG) Urine Phencyclidine Screen Neg (NEG) Urine Amphetamine/Methamphetamine Neg (NEG) Urine Benzodiazepines Screen Neg (NEG) Urine Cocaine Screen Neg (NEG) Urine Cannabinoids Screen Neg (NEG) Urine Ethyl Alcohol Neg (NEG) Free Triiodothyronine (T3) pg/mL 1.76 pg/mL (2.18-3.98) Test 02/18/19 06:39 Free Thyroxine 1.10 ng/dL (0.76-1.46) Assessment/Plan 1. Visual disturbances suspicious but not diagnostic for TIA. Neurology has been consulted. Plan outpatient echo with bubble study to rule out PFO. 2. Palpitations: in sinus rhythm and tele without any arrhythmias. Plan event monitor as outpatient 3. Hypothyroidism: treat per IM OK for DC from our standpoint. Thank you for your consultation JORGE MAKI MD Feb 18, 2019 13:58
[2019-02-18 15:12] VITALS: BP 108/71
--- NOTE | 2019-02-18 15:31 | NUR ---
PATIENT DISCHARGED HOME WITH SELF CARE. PATIENT IS GIVEN ALL BELONGINGS AT TIME OF D/C. PATIENT IS STABLE AT TIME OF D/C AND GIVEN ALL STROKE TEACHING AT DISCHARGE. PATIENTS IV REMOVED AND TELE MONITOR REMOVED. PATIENT AMBULATED OFF UNIT ACCOMPANIED BY SPOUSE.
--- NOTE | 2019-02-19 04:02 | CONS ---
DATE OF CONSULTATION: NEUROLOGIC CONSULT REFERRING PHYSICIAN: Dr. Hernandez. REASON FOR CONSULTATION: Visual disturbances, rule out TIA. HISTORY OF PRESENT ILLNESS: This is a 48-year-old right-handed female who was admitted to Emergency Room on 02/17/2019 on account of recurrent spells described as seeing stars in both eyes. These symptoms began last night and lasted 40 minutes. The patient describes similar episode 3 months ago, lasted longer. She denies headaches. However, the patient has had history of recurrent migraine since the age of 28. She usually has several headaches of migraine, but not that frequent. She described the same feeling after the migraine headache resolved and described as having pressure in the head. The patient had the same feeling yesterday as well. She denies nausea, vomiting, photophobia or phonophobia. The patient also denies chest pain, shortness of breath, palpitation, dysarthria or dysphagia, weakness or paresthesia. Initial nonenhanced head CT scan revealed no evidence of acute intracranial process. Carotid Doppler study revealed no evidence of significant carotid stenosis. The patient was found to have a thyroid toxicity during the last episode, but at this time TSH was normal and free T4 was also normal. The patient was having thyroid toxicity. PAST MEDICAL HISTORY: Significant for hypothyroidism. Then, she is thyroid toxic due to high dose of Synthroid at 175 mcg. PAST SURGICAL HISTORY: Positive for bladder sling and tonsillectomy. FAMILY HISTORY: Father is alive at age of 74 and has history of hypertension. Mother is alive at the age of 69 and she is healthy. SOCIAL HISTORY: The patient is . She has 4 children and one adopted child. She denies smoking, but she drinks 2 beers daily. She denies illegal drug use. CURRENT HOME MEDICATIONS: Synthroid ____ mcg daily, aspirin, but that was stopped a month ago. The patient uses Excedrin Migraine for headaches as needed. ALLERGIES: No known drug allergies. REVIEW OF SYSTEMS: A 10-point review of system was performed as mentioned above in history of present illness. PHYSICAL EXAMINATION: GENERAL: Well-developed, well-nourished female, not in acute distress. VITAL SIGNS: She weighs 63.1 kilos. Blood pressure 117/76, respiratory rate 20, pulse is 61, temperature 98.1, oxygen saturation 100% on room air. HEENT: Normocephalic, atraumatic, otherwise unremarkable. NECK: Supple. Negative for carotid bruit, lymphadenopathy or thyromegaly. LUNGS: Clear to A and P. CARDIOVASCULAR: Regular rate and rhythm, normal S1, S2. There is no S3, S4 or murmur. ABDOMEN: Soft. Bowel sounds positive. EXTREMITIES: Negative for cyanosis, clubbing or edema. NEUROLOGIC: Mental status: The patient is alert and oriented x 3. The speech is fluent. There is no language dysfunction. Memory, judgment, and abstract thinking are normal. The patient denies hallucination or delusion. CRANIAL NERVES: Visual deluca are full. The pupils are reactive to light and accommodation. The extraocular movements are intact. There is no nystagmus. There is no facial motor or sensory deficit. Hearing is intact bilaterally. The palate is elevated symmetrically. Sternocleidomastoid muscles are powerful bilaterally. The patient shrugs her shoulders symmetrically and protrudes her tongue in the midline without fasciculation or atrophy. MOTOR EXAMINATION: No focal motor muscle bulk was seen. The tone is normal. The strength is 5/5 throughout. Sensory examination revealed normal pinprick, light touch, vibratory and position senses. Deep tendon reflexes were symmetric and active without pathologic responses. Gait and coordination are normal. LABORATORY DATA: CBC revealed white blood cells of 3.9 thousand, hemoglobin 9.8, hematocrit 30.3, platelet count 223,000. Chemistry revealed sodium of 142, potassium 4, chloride 110, CO2 27, BUN 11, creatinine 0.8, glucose is 91, calcium 8.2. Lipid profile revealed high HDL at 74, otherwise unremarkable and free T4 is normal at 1.1 with TSH of 0.78. Urinalysis is negative for urinary tract infections. Urine drug screen is negative as well. DIAGNOSTIC: Initial nonenhanced head CT scan revealed no evidence of acute intracranial process and carotid Doppler study revealed no evidence of significant carotid artery stenosis and chest x-ray revealed no acute cardiopulmonary process. IMPRESSION: 1. Recurrent episodes of visual disturbances, described as blurred vision, seeing many stars lasted 40 minutes. Previous episode was several months ago, the underlying etiology transient ischemic attack versus migraine without headaches. 2. History of thyroid toxicity with current normal TSH and free T4. 3. Normal neurological examination. Other possibility rule out PFO. 4. Anemia. RECOMMENDATIONS: 1. Continue with current management initiated by Dr. Hernandez. 2. Echocardiogram with bubble study to rule out PFO. If echocardiogram is negative, then the etiology of her symptoms probably due to migraine. 3. The patient had a normal MRI in the past. If she has recurrent symptoms, brain MRA will be recommended. M Mini ACUNA MD DR: JOLENE/christiano JOB#: [id number] / [id number]
== END 2019-02-18 15:30 | disposition home or self-care (01) | DRG 103 ==
LOC: ER 17:29 → 1 SOUTH 18:15
PROVIDERS: ADMIT Internal Medicine; ATTEND Internal Medicine
DX: G43.909 Migraine, unspecified, not intractable, without status migrainosus (principal); G45.9 Transient cerebral ischemic attack, unspecified; Z99.11 Dependence on respirator [ventilator] status; Q21.1 Atrial septal defect; D64.9 Anemia, unspecified; E03.9 Hypothyroidism, unspecified; Z79.82 Long term (current) use of aspirin; Z79.890 Hormone replacement therapy; Z82.49 Family history of ischemic heart disease and other diseases of the circulatory system; Z86.73 Personal history of transient ischemic attack (TIA), and cerebral infarction without residual deficits
CPT/HCPCS: 36415; 70450; 71046; 80048; 80061; 80307; 81001; 82550; 83735; 83880; 84439; 84443; 84481; 84484; 85025; 85610; 85651; 85730; 93005; 93880; 96365; G0480; J7120; 99285-25

== ENCOUNTER → 2019-04-11 | Outpatient (CLI) | payer OTHER ==
[~2019-04-11] MED LIST changes: +LEVO137T2 PO
--- NOTE | 2019-04-12 08:09 | CARD ---
MR#: [id number] Date of Study: 04/11/2019 Ordering Physician: JORGE STANLEY, Referring Physician: JORGE STANLEY, Tech: Reyna Burt APPROVED REPORT EXAM: Two-dimensional and M-mode echocardiogram with Doppler and color Doppler. Other Information Quality : GoodHR: 74bpm INDICATION CVA/TIA Echo Enhancing Agent Indication: Rule Out Septal Defect Agent/Amount Used: Agitated [id number] 2D DIMENSIONS RVDd3.1 (2.9-3.5cm)Left Atrium(2D)2.5 (1.6-4.0cm) IVSd0.8 (0.7-1.1cm)Aortic Root(2D)3.1 (2.0-3.7cm) LVDd3.8 (3.9-5.9cm)LVOT Diameter2.0 (1.8-2.4cm) PWd0.8 (0.7-1.1cm)LVDs2.4 (2.5-4.0cm) FS (%) 33.4 %SV35.5 ml LVEF(%)63.0 (>50%) Aortic Valve AoV Peak Star.141.0cm/sAoV VTI27.3cm AO Peak GR.8.0mmHgLVOT Peak Star.104.5cm/s LVOT VTI 21.26cmAO Mean GR.4mmHg ESPINOZA (VMAX)2.14eo7RVZ (VTI)2.35cm2 Mitral Valve MV E Xqlumevq22.1cm/sMV DECEL [id number] MV A Vloblwov76.6cm/sE/A Ratio1.1 Pulmonary Valve PV Peak Ggtojcai44.8cm/sPV Peak Grad.3mmHg Tricuspid Valve TR P. Tsnfkvxr833hv/sRAP [id number] TR Peak Gr.70iwMsHYJT71neYb Pulmonary Vein S1 Olfthujw44.7cm/sD2 Sugvzbmq92.2cm/s LEFT VENTRICLE The left ventricle is normal size. There is normal left ventricular wall thickness. The left ventricu lar systolic function is normal. The Ejection Fraction is 60%. There is normal LV segmental wall john on. The left ventricular diastolic function and filling is normal for age. RIGHT VENTRICLE The right ventricle is normal size. There is normal right ventricular wall thickness. The right ventr icular systolic function is normal. ATRIA The left atrium size is normal. The right atrium size is normal. The interatrial septum is intact wit h no evidence for an atrial septal defect or patent foramen ovale as noted on 2-D or Doppler imaging. AORTIC VALVE The aortic valve is normal in structure and function. Doppler and Color Flow revealed no significant aortic regurgitation. There is no significant aortic valvular stenosis. MITRAL VALVE The mitral valve is normal in structure and function. There is no evidence of mitral valve prolapse. There is no mitral valve stenosis. Doppler and Color-flow revealed trace mitral regurgitation. TRICUSPID VALVE The tricuspid valve is normal in structure and function. Doppler and Color Flow revealed trace tricus pid regurgitation with an estimated PAP of 22 mmHg. There is no tricuspid valve stenosis. PULMONIC VALVE The pulmonic valve is not well visualized. Doppler and Color Flow revealed no pulmonic valvular regur gitation. GREAT VESSELS The aortic root is normal in size. The IVC is normal in size and collapses >50% with inspiration. PERICARDIAL EFFUSION There is no evidence of significant pericardial effusion. Critical Notification Critical Value: No <Conclusion> The left ventricular systolic function is normal. The Ejection Fraction is 60%. There is normal LV segmental wall motion. Trace mitral regurgitation. Trace tricuspid regurgitation with an estimated PAP of 22 mmHg. There is no evidence of significant pericardial effusion. Signed by : Jorge Stanley, Electronically Approved : 04/12/2019 08:08:58
== END | disposition home or self-care (01) ==
LOC: ECHO 13:44
PROVIDERS: ATTEND Internal Medicine Cardiovascular Disease
DX: G45.9 Transient cerebral ischemic attack, unspecified (principal)
CPT/HCPCS: 93306

== ENCOUNTER 2019-04-18 13:17 | Emergency (ER) | payer OTHER ==
[2019-04-18 13:38] LABS: BASO # 0.1 x10^3/uL (0.0-0.2); BASO % 1 % (0-3); EOS # 0.1 x10^3/uL (0.0-0.7); EOS % 2 % (0-3); HEMATOCRIT 33.7 % (36.0-47.0); LYMPH # 1.8 x10^3/uL (1.0-4.8); LYMPH % 32 % (24-48); MEAN CORPUSCULAR HEMOGLOBIN 28 pg (25-35); MEAN CORPUSCULAR HGB CONC 33 g/dL (31-37); MEAN CORPUSCULAR VOLUME 86 fL (79-100); MONO # 0.5 x10^3/uL (0.0-1.1); MONO % 9 % (0-9); NEUT % 56 % (31-73); PLATELET COUNT 320 x10^3/uL (140-400); RED BLOOD COUNT 3.93 x10^6/uL (3.50-5.40); RED CELL DISTRIBUTION WIDTH 15.3 % (11.5-14.5); WHITE BLOOD COUNT 5.5 x10^3/uL (4.0-11.0)
--- NOTE | 2019-04-18 13:42 | PHYS DOC ---
Past History Past Medical History: Hypothyroid, TIA, Other Additional Past Medical Histor: patent foramen ovale Past Surgical History: Tonsillectomy, Other Additional Past Surgical Histo: pelvic mesh Smoking: Non-smoker Alcohol Use: Heavy Drug Use: None Adult General Chief Complaint Chief Complaint: VISION PROBLEM HPI HPI Patient is a 48-year-old female presents with vision loss in her right eye that started approximately 30 minutes prior to arrival. It was noted as a bunch of bright lights or stars, but took up her entire visual field. This lasted approximately 15 minutes. Symptoms have since resolved. No headache. No nausea or vomiting. Patient has had tingling in both hands throughout the day but has gotten better since the eye symptoms have resolved. Patient is concerned about the possibility of another TIA or stroke. She was recently diagnosed through an echo of her heart as having a patent foramen ovale, and is pending surgery on Wednesday at [facility].[] Review of Systems Review of Systems Constitutional: Denies fever or chills [] Eyes: Denies redness, or eye pain, see history of present illness [] HENT: Denies nasal congestion or sore throat [] Respiratory: Denies cough or shortness of breath [] Cardiovascular: No chest pain or palpitations[] GI: Denies abdominal pain, nausea, vomiting, bloody stools or diarrhea [] : Denies dysuria or hematuria [] Musculoskeletal: Denies back pain or joint pain [] Integument: Denies rash or skin lesions [] Neurologic: Denies headache, focal weakness or sensory changes [] Endocrine: Denies polyuria or polydipsia [] All other systems were reviewed and found to be within normal limits, except as documented in this note. Allergies Allergies Allergies Coded Allergies Type Severity Reaction Last Updated Verified No Known Drug Allergies 11/26/18 No Physical Exam Physical Exam Constitutional: Well developed, well nourished, no acute distress, non-toxic appearance. [] HENT: Normocephalic, atraumatic, bilateral external ears normal, oropharynx moist, no oral exudates, nose normal. [] Eyes: PERRLA, EOMI, conjunctiva normal, no discharge. [] Neck: Normal range of motion, no tenderness, supple, no stridor. [] Cardiovascular:Heart rate regular rhythm, no murmur [] Lungs & Thorax: Bilateral breath sounds clear to auscultation [] Abdomen: Bowel sounds normal, soft, no tenderness, no masses, no pulsatile masses. [] Skin: Warm, dry, no erythema, no rash. [] Back: No tenderness, no CVA tenderness. [] Extremities: No tenderness, no cyanosis, no clubbing, ROM intact, no edema. [] Neurologic: Alert and oriented X 3, normal motor function, normal sensory function, no focal deficits noted. [] Psychologic: Affect normal, judgement normal, mood normal. [] Current Patient Data Vital Signs Vital Signs Date Time Temp Pulse Resp B/P (MAP) Pulse Ox O2 Delivery O2 Flow Rate FiO2 04/18/19 13:17 98.5 73 95 Room Air EKG EKG EKG shows a sinus rhythm at 71 bpm, normal axis, QTC of 430 ms, no ST elevations. No atrial fibrillation. Interpreted by me at 1333[] Radiology/Procedures Radiology/Procedures PROCEDURE: PORTABLE CHEST 1V Examination: PORTABLE CHEST 1V History: Visual changes, possible stroke, TIA Comparison/Correlation: 02/17/2019 two-view chest x-ray exam Findings: Frontal view chest was obtained. Heart size and pulmonary vasculature are normal. No infiltrate or pleural effusion. No pneumothorax. Bony structures are unremarkable. Impression: No active disease. PROCEDURE: CT HEAD WO CONTRAST CT HEAD WO CONTRAST History: Acute right eye vision changes. Comparison: February 17, 2019 Technique: Noncontrast CT imaging was performed of the head. Exposure: One or more of the following individualized dose reduction techniques were utilized for this examination: 1. Automated exposure control 2. Adjustment of the mA and/or kV according to patient size 3. Use of iterative reconstruction technique. Findings: No intracranial hemorrhage. No mass effect. No hydrocephalus. Extra-axial spaces are unremarkable. Imaged orbits are unremarkable. Imaged paranasal sinuses and mastoid air cells are clear. Impression: 1. No acute intracranial abnormality. [] Course & Med Decision Making Course & Med Decision Making Pertinent Labs and Imaging studies reviewed. (See chart for details) ED course: Patient arrived, was placed in bed, and tolerated exam well. She was transported to and from radiology with any complications. The results of the l aboratory and imaging findings were discussed with patient and family. Consultation was made with the hospitalist service at [facility] given there greater resources to include MRI/MRA and that is where she is pending repair of her PFO/ASD. Her care was discussed with Dr. Chappell who graciously accepted. Additional consultation was made with cardiology service given the pending repair of the PFO/ASD. Medical decision making: Patient with possible TIA. There is no evidence of an acute stroke syndrome requiring TPA given that her symptoms have resolved and her NIH stroke scale is 0. She does have a known PFO/ASD which is pending repair in 3 days. One of the notes made on review of her chart when she was recently admitted for similar symptoms was discussing the possibility of needing an MRA. She is being transferred for this higher level of care not available at [facility]. Patient is currently taking an aspirin a day. Additional aspirin was held given that she is pending the procedure for the PFO/ASD.[] Dragon Disclaimer Dragon Disclaimer This electronic medical record was generated, in whole or in part, using a voice recognition dictation system. Departure Departure: Impression: Primary Impression: Transient ischemic attack Disposition: 05 TRANSFER OTHER Admitting Physician: Other Condition: IMPROVED Referrals: YAMEL MCDOWELL DO (PCP) NIHSS - ED NIH Stroke Scale: NIH Stroke Scale Response (Comments) Value Level of Consciousness: 0 Alert/Responsive 0 LOC Questions: 0 Answers both correctly 0 LOC Commands: 0 Performs both tasks 0 Best Gaze: 0 Normal 0 Visual: 0 No visual loss 0 Facial Palsy: 0 Normal, symmetrical 0 Motor - Left Arm 0 No drift 0 Motor - Right Arm 0 No drift 0 Motor - Left Leg 0 No drift 0 Motor: Right Leg 0 No drift 0 Limb Ataxia: 0 Absent 0 Sensory: 0 No loss 0 Best Language: 0 Normal 0 Dysathria: 0 Normal 0 Extinction and Inattention: 0 Normal 0 Total 0 SHERI JESSICA DO Apr 18, 2019 13:42
[2019-04-18 13:59] LABS: ALBUMIN/GLOBULIN RATIO 1.2 (1.0-1.7); CALCIUM 8.7 mg/dL (8.5-10.1); CREATININE 0.8 mg/dL (0.6-1.0); GFR 75.9; MAGNESIUM 2.4 mg/dL (1.8-2.4); POTASSIUM 3.9 mmol/L (3.5-5.1); TOTAL BILIRUBIN 0.3 mg/dL (0.2-1.0); TOTAL PROTEIN 7.3 g/dL (6.4-8.2)
--- NOTE | 2019-04-18 14:10 | RAD ---
Examination: PORTABLE CHEST 1V History: Visual changes, possible stroke, TIA Comparison/Correlation: 02/17/2019 two-view chest x-ray exam Findings: Frontal view chest was obtained. Heart size and pulmonary vasculature are normal. No infiltrate or pleural effusion. No pneumothorax. Bony structures are unremarkable. Impression: No active disease. Electronically signed by: Francisco Hernandez MD (04/18/2019 2:08 PM) [facility]
--- NOTE | 2019-04-18 14:18 | RAD ---
CT HEAD WO CONTRAST History: Acute right eye vision changes. Comparison: February 17, 2019 Technique: Noncontrast CT imaging was performed of the head. Exposure: One or more of the following individualized dose reduction techniques were utilized for this examination: 1. Automated exposure control 2. Adjustment of the mA and/or kV according to patient size 3. Use of iterative reconstruction technique. Findings: No intracranial hemorrhage. No mass effect. No hydrocephalus. Extra-axial spaces are unremarkable. Imaged orbits are unremarkable. Imaged paranasal sinuses and mastoid air cells are clear. Impression: 1. No acute intracranial abnormality. Electronically signed by: Mono Benson DO (04/18/2019 2:15 PM) [id number]
[2019-04-18 14:37] VITALS: BP 104/70
[2019-04-18 14:45] LABS: AMPHETAMINE/METHAMPHETAMINE NEG (NEG); BARBITURATES NEG (NEG); BENZODIAZEPINES NEG (NEG); CANNABINOIDS NEG (NEG); COCAINE NEG (NEG); METHADONE NEG (NEG); OPIATES NEG (NEG); PHENCYCLIDINE NEG (NEG)
[2019-04-18 14:50] LABS: CLARITY,URINE CLOUDY; COLOR,URINE RED
[2019-04-18 14:51] LABS: BACTERIA,URINE FEW /HPF (0-FEW); BILIRUBIN,URINE NEG (NEG); GLUCOSE,URINE NEG (NEG); NITRITE,URINE NEG (NEG); RBC,URINE TNTC /HPF (0-2); SQUAMOUS EPITHELIAL CELL,UR OCC /LPF; UROBILINOGEN,URINE 0.2 mg/dL (0.2 mg/dL); WBC,URINE OCC /HPF (0-4)
--- NOTE | 2019-04-18 17:07 | EKG ---
[address] [address] Test Date: 2019-04-18 Test Time: 13:31:20 Pat Name: TREVER MOHAN Department: Room: Gender: F [employer]: RADHA : 1970 Requested By: SHERI JESSICA Order Number: [id number] Reading MD: Measurements Intervals [place] Rate: 71 P: 64 [place]: 164 QRS: 75 QRSD: 80 T: 66 QT: 396 QTc: 430 Interpretive Statements SINUS RHYTHM QRS(T) CONTOUR ABNORMALITY CONSIDER ANTEROSEPTAL MYOCARDIAL DAMAGE POSSIBLY ABNORMAL ECG RI6.01 No previous ECG available for comparison
== END 2019-04-18 15:50 | disposition short-term general hospital (02) ==
LOC: ER 13:17
DX: G45.9 Transient cerebral ischemic attack, unspecified (principal); E03.9 Hypothyroidism, unspecified; F10.20 Alcohol dependence, uncomplicated; Z86.73 Personal history of transient ischemic attack (TIA), and cerebral infarction without residual deficits; Y90.9 Presence of alcohol in blood, level not specified
CPT/HCPCS: 36415; 70450; 71045; 80053; 80307; 81001; 83735; 83880; 84443; 84484; 85025; 85610; 85730; 93005; 99285

== ENCOUNTER → 2019-08-21 | Outpatient (CLI) | payer OTHER ==
--- NOTE | 2019-08-21 15:09 | CARD ---
MR#: [id number] Date of Study: 08/21/2019 Ordering Physician: JORGE STANLEY, Referring Physician: JORGE STANLEY, Tech: Ruby Segura RDCS APPROVED REPORT EXAM: Two-dimensional and M-mode echocardiogram with Doppler, color Doppler with bubble study. Other Information Quality : AverageHR: 73bpm Rhythm : NSR INDICATION Post PFO closure 2D DIMENSIONS RVDd2.9 (2.9-3.5cm)Left Atrium(2D)2.3 (1.6-4.0cm) IVSd0.8 (0.7-1.1cm)Aortic Root(2D)3.0 (2.0-3.7cm) LVDd4.4 (3.9-5.9cm)LVOT Diameter1.9 (1.8-2.4cm) PWd0.7 (0.7-1.1cm)LVDs3.1 (2.5-4.0cm) FS (%) 28.6 %SV48.3 ml LVEF(%)55.4 (>50%) Aortic Valve AoV Peak Star.128.4cm/sAoV VTI26.0cm AO Peak GR.6.6mmHgLVOT Peak Star.96.4cm/s LVOT VTI 23.36cmAO Mean GR.3mmHg ESPINOZA (VMAX)2.62ft3MZC (VTI)2.57cm2 Mitral Valve MV E Sxqxmolr01.4cm/sMV DECEL [id number] MV A Bsiyubwt64.6cm/sE/A Ratio1.3 Pulmonary Valve PV Peak Rwvewjbq71.2cm/sPV Peak Grad.2mmHg Tricuspid Valve TR P. Hiqcpkqt275no/sRAP [id number] TR Peak Gr.57bpRgBGBD95ciUi LEFT VENTRICLE The left ventricle is normal size. There is normal left ventricular wall thickness. The left ventricu lar systolic function is normal. The Ejection Fraction is 55-60%. There is normal LV segmental wall m otion. The left ventricular diastolic function and filling is normal for age. RIGHT VENTRICLE The right ventricle is normal size. There is normal right ventricular wall thickness. The right ventr icular systolic function is normal. ATRIA The left atrium size is normal. The right atrium size is normal. Injection of bubbles documented no i nteratrial shunt. Closure device well seated. AORTIC VALVE The aortic valve is normal in structure and function. The aortic valve is trileaflet. Doppler and Col or Flow revealed no significant aortic regurgitation. There is no significant aortic valvular stenosi s. There is no aortic valvular vegetation. MITRAL VALVE The mitral valve is normal in structure and function. There is no evidence of mitral valve prolapse. There is no mitral valve stenosis. Doppler and Color-flow revealed trace mitral regurgitation. TRICUSPID VALVE The tricuspid valve is normal in structure and function. Doppler and Color Flow revealed trace tricus pid regurgitation. The PA pressure was estimated at 18 mmHg. There is no tricuspid valve prolapse or vegetation. There is no tricuspid valve stenosis. PULMONIC VALVE The pulmonary valve is normal in structure and function. Doppler and Color Flow revealed no pulmonic valvular regurgitation. There is no pulmonic valvular stenosis. GREAT VESSELS The aortic root is normal in size. The ascending aorta is normal in size. The IVC is normal in size a nd collapses >50% with inspiration. PERICARDIAL EFFUSION There is no evidence of significant pericardial effusion. Critical Notification Critical Value: No <Conclusion> The left ventricular systolic function is normal. The Ejection Fraction is 55-60%. There is normal LV segmental wall motion. Doppler and Color-flow revealed trace mitral regurgitation. Doppler and Color-flow revealed trace mitral regurgitation. There is no evidence of significant pericardial effusion. Amplatzer closure device appears well seated. Injection of bubbles documented no interatrial shunt. Signed by : Jorge Stanley, Electronically Approved : 08/21/2019 15:09:11
== END | disposition home or self-care (01) ==
LOC: ECHO 13:03
PROVIDERS: ATTEND Internal Medicine Cardiovascular Disease
DX: Q21.1 Atrial septal defect (principal)
CPT/HCPCS: 93306